=== PATIENT | male | born 1965 | race Caucasian/White ===

== ENCOUNTER 2016-12-20 12:28 | Day surgery (SDC) | payer OTHER ==
[~2016-12-20] VITALS: Ht 175.3 cm; Wt 93.9 kg
[2016-12-20] MEDS ORDERED: PANTOPRAZOLE (14:13)
[2016-12-20 16:36] VITALS: BP 130/75; PULSE 67; RESP 16
--- NOTE | 2016-12-20 17:37 | OPPN ---
Date/Time of Note Date/Time of Note DATE: 12/20/16 TIME: 17:35 Proc Note GI Procedure Date 12/20/16 Indication: other (Dyspepsia) Pre-procedure Diagnosis Dyspepsia Post-procedure Diagnosis Impression: Moderate distal esophagitis. Small hiatal hernia. Moderate gastritis. Rule out H. pylori infection. Biopsies obtained Otherwise normal EGD. Plan: Continue pantoprazole 40 mg daily Review biopsies . Procedure Performed: Endoscopy (With biopsies) Surgeon DINORA MITCHELL MD See signature line Legal Activity Adjudicator none Anesthesia Type: moderate sedation (Versed 6 mg/fentanyl 100 mcg) Tourniquet Time none EBL none Transfusion required none Biopsy 1: Gastric body and antrum/rule out H. pylori infection Grafts/Implants none Tubes/Drains none Complication(s) none Disposition: home Procedure Description Preoperative Diagnosis: After informed consent, with the patient/relatives understanding the procedure, its indications, potential risks and complications, including but not limited to : allergic reaction, bleeding, perforation or infection, and after all pertinent questions were answered to the patients satisfaction, the patient/ relatives signed witnessed informed consent. Following this, premedication was administered slowly IV push under careful cardiovascular and respiratory monitoring with pulse oximetry, automatic blood pressure, and phototypesetting equipment monitor. Once the sedative effect was achieved the patient was place in the left lateral decubitus, the panendoscope was introduced and advanced under visual control. Careful examination of the upper gastrointestinal tract, both on insertion as well as withdrawal of the instrument disclosing the following findings: ESOPHAGUS: the mucosa of the entire esophagus was carefully examined and showed the following findings: There is erythema and edema of the mucosa of the distal esophagus. Otherwise the mucosa appears within normal limits. There is no evidence of varices, neoplasm, or stricture. Small hiatal Hernia identified. STOMACH: Upon entrance to the stomach air was insufflated, the gastric silvestre distended normally. The mucosa of the fundus, body and antrum of the stomach was carefully examined both head-on and on retroflexion, and showed the following findings: There is moderate erythema and edema of the mucosa of the body and antrum the stomach. Biopsies were obtained to rule out H. pylori infection. Otherwise the mucosa appears within normal limits with no abnormalities. There is no evidence of ulcers or neoplasm. PYLORUS: The pylorus was carefully examined and showed the following findings: the pylorus appears patent and within normal limits, with no evidence of gastric outlet obstruction. DUODENUM: The duodenal mucosa was carefully examined in the duodenal bulb as well as the second portion of the duodenum and showed the following findings: the mucosa appears unremarkable with no evidence of duodenitis, ulcer or neoplasm. Copies To: CC: DINORA MITCHELL MD, MORDO MD Dec 20, 2016 17:37
--- NOTE | 2016-12-20 17:40 | OPPN ---
Date/Time of Note Date/Time of Note DATE: 12/20/16 TIME: 17:37 Proc Note GI Procedure Date 12/20/16 Indication: other (Colorectal cancer screening) Pre-procedure Diagnosis Colorectal cancer screening Post-procedure Diagnosis Impression: 2 small polyps in the mid ascending colon measuring 3-4 mm. Ablated with biopsy forceps. Moderate-sized internal hemorrhoids. Otherwise normal colonoscopy to cecum. Plan: Follow up as scheduled] High fiber diet Annual hemoccult stool testing [Review pathology] [Surveillance colonoscopy in 5 years] . Procedure Performed: Colonoscopy (With ablation) Surgeon see signature line Rail Equipment Operator none Anesthesia Type: moderate sedation (Versed 6 mg/fentanyl 100 mcg) Tourniquet Time none EBL none Transfusion required none Biopsy 1: None Polyp 1: Mid ascending colon polyp 2 Grafts/Implants none Tubes/Drains none Complication(s) none Disposition: home Procedure Description After informed consent, with the patient/relatives understanding the procedure, its indications and potential risks and complications, including but not limited to: Allergic reaction, bleeding, perforation, infection, and after all pertinent questions were answered to the patient's satisfaction, the patient/ relatives signed the witnessed informed consent. Following this, premedication was administered slowly IV push under careful cardiovascular and respiratory monitoring with pulse [employer], automatic blood pressure, and threat monitoring analyst. Once the sedative effect was achieved, the patient was placed in the left lateral decubitus position, digital rectal examination was performed. The colonoscope was then introduced and advanced under visual control throughout all segments of the colon including: the rectum, sigmoid, descending colon, splenic flexure, transverse colon, hepatic flexure, ascending colon and finally reaching the cecum which was clearly identified by transillumination, finger indentation and the ileocecal valve. Careful examination of the mucosa of the lower gastrointestinal tract both on insertion as well as withdrawal of the instrument disclosed the following findings: PREPARATION QUALITY: [Adequate], RECTAL EXAM: The anorectal area was visualized examined and digital rectal examination performed with the following findings: No evidence of perirectal disease, no masses. COLONIC MUCOSA: The mucosa of all segments of the colon was carefully examined and showed the following findings: There are 2 small 3-4 mm polyps in the mid descending colon. Ablated with biopsy forceps. Otherwise the examined mucosa appears within normal limits. There is no evidence of inflammatory changes, diverticular formation, other polyps or neoplasms, vascular malformation, or any other abnormality. The instrument was then withdrawn, the patient tolerated the procedure well and was transferred out of the Endoscopy Suite awake and in good condition to continue recovery under observation. Copies To: CC: DINORA MITCHELL MD, MORDO MD Dec 20, 2016 17:40
[2016-12-20] MEDS ORDERED: MIDAZOLAM 1 MG/ML 2 ML INJ ONE ×3 (17:43)
[2016-12-20] MEDS ORDERED: FENTAnyl 50 MCG/ML VIAL ONE (17:43)
[2016-12-20 17:59] VITALS: RESP 14
[2016-12-20 18:00] VITALS: BP 138/78
== END 2016-12-20 18:36 | disposition home or self-care (01) ==
LOC: GIL 12:28
PROVIDERS: ATTEND Internal Medicine Gastroenterology
DX: Z12.11 Encounter for screening for malignant neoplasm of colon (principal); K29.50 Unspecified chronic gastritis without bleeding; D12.2 Benign neoplasm of ascending colon; K64.8 Other hemorrhoids; K20.8 Other esophagitis; K44.9 Diaphragmatic hernia without obstruction or gangrene
CPT/HCPCS: 43239; 45378; 88305; 88312; J2250; J3010; Z7610